=== PATIENT | female | born 1995 | race Caucasian/White ===

== ENCOUNTER 2018-07-11 20:59 | Emergency (ER) | payer OTHER ==
[~2018-07-11] VITALS: Ht 167.6 cm; Wt 63.6 kg
[2018-07-11 21:07] VITALS: TEMP 99.2
[2018-07-11 22:30] LABS: COLLECTION METHOD CLEAN CATCH
[2018-07-11 22:35] LABS: MUCOUS Present /lpf; PH 6 (5-8); SQUAMOUS EPITHELIAL None Seen /hpf; URINE APPEARANCE Clear; URINE BACTERIA None Seen /hpf; URINE BILIRUBIN Negative (NEGATIVE); URINE BLOOD Negative (NEGATIVE); URINE COLOR Yellow; URINE GLUCOSE Negative (NEGATIVE); URINE KETONE 1+ (NEGATIVE); URINE LEUKOCYTE ESTERASE Negative (NEGATIVE); URINE NITRATE Negative (NEGATIVE); URINE PROTEIN(semi-quant) Negative (NEGATIVE); URINE RBC 0-2 /hpf; URINE UROBILINOGEN Negative (NEGATIVE)
[2018-07-11] MEDS ORDERED: CEPHALEXIN500 M1 PO (23:09)
[2018-07-11 23:20] VITALS: BP 127/56; PULSE 89
== END 2018-07-11 23:20 | disposition home or self-care (01) ==
LOC: COL.ER 20:59
PROVIDERS: Emergency Medicine
DX: N34.0 Urethral abscess (principal)